=== PATIENT | male | born 1940 | race Caucasian/White ===

== ENCOUNTER 2020-07-26 10:09 | Outpatient (CLI) | payer MEDICARE | END 2020-07-26 10:10 | disposition home or self-care (01) | LOC: BICRAD 10:09 | PROVIDERS: ATTEND Internal Medicine Critical Care Medicine | DX: R06.00 Dyspnea, unspecified (principal); R91.8 Other nonspecific abnormal finding of lung field | CPT/HCPCS: 71046 ==

== ENCOUNTER 2020-08-09 11:25 | Inpatient (IN) | payer MEDICARE ==
[2020-08-09 12:40] LABS: #Eosinphils 0.1 thou/uL (0.0-0.7); #Lymphocytes 1.6 thou/uL (1.20-3.40); #Monocytes 0.5 thou/uL (0.11-0.59); #Neutrophils 5.5 thou/uL (1.40-6.50); %Basophils 0.3 % (0.0-1.0); %Eosinophils 1.3 % (0.0-10.0); %Lymphocytes 20.4 % (21.0-51.0); %Monocytes 6.6 % (0.0-10.0); %Neutrophils 71.4 % (42.0-75.0); Hemoglobin 13.5 g/dL (14.0-18.0); Mean Corpuscular HGB CONC 31.6 g/dL (32.0-36.0); Mean Corpuscular Volume 98.3 fL (78.0-98.0); Mean Platelet Volume 8.1 fL (7.4-10.4); Platelet Count 129 thou/uL (130-400); RBC Distribution Width 12.5 % (11.5-14.5); Red Blood Cell (RBC) Count 4.36 mill/uL (4.70-6.10); White Blood Cell (WBC) Count 7.8 thou/uL (4.8-10.8)
[2020-08-09 13:01] LABS: ALT (SGPT) 80 U/L (8-55); AST (SGOT) 30 U/L (5-34); Albumin 3.7 g/dL (3.4-4.8); Alkaline Phosphatase 124 U/L (40-110); Anion Gap 10 mmol/L (10-20); BUN (Urea Nitrogen) 22 mg/dL (8.4-25.7); Bilirubin, Total 0.5 mg/dL (0.2-1.2); Calc. Creatinine Clearance 0 mL/min (70-130); Calcium 8.7 mg/dL (7.8-10.44); Carbon Dioxide 32 mmol/L (23-31); Chloride 107 mmol/L (98-107); Globulin 2.3 g/dL (2.4-3.5); Glucose 133 mg/dL (83-110); Potassium 3.9 mmol/L (3.5-5.1); Sodium 145 mmol/L (136-145)
[2020-08-09] MEDS ORDERED: methylPREDNISolone Sod Succ/PF 125 MG/2 ML VIAL ONE (13:59)
[2020-08-09] MEDS ORDERED: Ondansetron ODT 4 MG TAB PO PRN (16:55)
[2020-08-09] MEDS ORDERED: Acetaminophen 325 MG TAB PO PRN (16:55)
[2020-08-09] MEDS ORDERED: cefTRIAXone\\ROCEPHIN 1 GM in Sodium Chloride 0.9% 100 ML IVPB SCH (17:00)
[2020-08-09 17:33] LABS: Bilirubin Negative (Negative); Blood, Urine Negative (Negative); Clarity Turbid (Clear); Glucose, Urine (Dipstick) Normal (Negative); Ketone, Urine Negative (Negative); Leukocyte Negative Leu/uL (Negative); Nitrite Negative (Negative); Protein, Urine (Dipstick) 20 mg/dL (Neg-Trace); Specific Gravity, Urine 1.031 (1.002-1.036); Urobilinogen Normal mg/dL (Less than 2); pH, Urine 5.5 (5.0-9.0)
[2020-08-09] MEDS ORDERED: ALPRAZolam 0.25 MG TAB PO PRN (17:35)
[2020-08-09] MEDS ORDERED: Sodium Chloride 0.45% 1,000 ML IV SCH (17:45)
[2020-08-09] MEDS ORDERED: traZODone HCl 50 MG TAB PO PRN (17:59)
[2020-08-09 19:02] VITALS: BMI 36.8
[2020-08-09] MEDS ORDERED: methylPREDNISolone Sod Succ 40 MG VIAL ONE (19:38)
[2020-08-09] MEDS: methylPREDNISolone Sod Succ 40 MG VIAL IVP SCH (19:48)
[2020-08-09] MEDS ORDERED: Magnesium Sulfate 3 GM in Sodium Chloride 0.9% 100 ML IVPB SCH (20:00)
[2020-08-09] MEDS ORDERED: Cefepime 2 GM VIAL ONE (20:22)
[2020-08-09] MEDS: Cefepime 2 GM in Sodium Chloride 0.9% 100 ML IVPB SCH (20:27)
[2020-08-09] MEDS ORDERED: Famotidine 20 MG TAB ONE (21:17)
[2020-08-09] MEDS: Famotidine 20 MG TAB PO SCH (21:38)
[2020-08-09] MEDS: guaiFENesin ER 600 MG TAB PO SCH (21:46)
[2020-08-09] MEDS: Atorvastatin Calcium 20 MG TAB PO SCH (21:46)
[2020-08-09] MEDS: Tamsulosin HCl 0.4 MG CAP PO SCH (21:47)
[2020-08-10] MEDS: methylPREDNISolone Sod Succ 40 MG VIAL IVP SCH ×4 (00:10→17:18)
[2020-08-10] MEDS: Cefepime 2 GM in Sodium Chloride 0.9% 100 ML IVPB SCH ×3 (03:51→20:29)
[2020-08-10 04:57] LABS: #Lymphocytes 0.7 thou/uL (1.20-3.40); #Monocytes 0.1 thou/uL (0.11-0.59); #Neutrophils 8.1 thou/uL (1.40-6.50); %Basophils 0.1 % (0.0-1.0); %Eosinophils 0.1 % (0.0-10.0); %Lymphocytes 7.9 % (21.0-51.0); %Monocytes 1.1 % (0.0-10.0); %Neutrophils 90.7 % (42.0-75.0); Hemoglobin 13.9 g/dL (14.0-18.0); Mean Corpuscular HGB CONC 31.8 g/dL (32.0-36.0); Mean Corpuscular Hemoglobin 31.6 pg (27.0-31.0); Mean Corpuscular Volume 99.6 fL (78.0-98.0); Mean Platelet Volume 8.4 fL (7.4-10.4); Platelet Count 145 thou/uL (130-400); RBC Distribution Width 12.4 % (11.5-14.5); Red Blood Cell (RBC) Count 4.38 mill/uL (4.70-6.10); White Blood Cell (WBC) Count 8.9 thou/uL (4.8-10.8)
[2020-08-10 05:12] LABS: Anion Gap 12 mmol/L (10-20); BUN (Urea Nitrogen) 21 mg/dL (8.4-25.7); Calc. Creatinine Clearance 99 mL/min (70-130); Calcium 8.5 mg/dL (7.8-10.44); Carbon Dioxide 27 mmol/L (23-31); Chloride 106 mmol/L (98-107); Glucose 206 mg/dL (83-110); Potassium 4.3 mmol/L (3.5-5.1); Sodium 141 mmol/L (136-145)
[2020-08-10] MEDS: Famotidine 20 MG TAB PO SCH ×2 (08:59→20:29)
[2020-08-10] MEDS ORDERED: FLU VACC QS2020-21(65YR UP)/PF 240 MCG/0.7 ML SYRINGE IM ONE (09:00)
[2020-08-10] MEDS: Finasteride 5 MG TAB PO SCH (09:00)
[2020-08-10] MEDS: Enoxaparin Sodium 40 MG/0.4 ML SYRINGE SC SCH (09:00)
[2020-08-10] MEDS: Potassium Chloride 20 MEQ TAB PO SCH (09:00)
[2020-08-10] MEDS: Furosemide 20 MG TAB PO SCH (09:01)
[2020-08-10] MEDS: Escitalopram Oxalate 20 mg Tablet PO SCH (09:01)
[2020-08-10] MEDS: Amlodipine 10 MG TAB PO SCH (09:01)
[2020-08-10] MEDS: guaiFENesin ER 600 MG TAB PO SCH ×2 (09:01→20:29)
[2020-08-10 13:09] LABS: SARS-CoV-2 PCR by NAA Not Detected (NotDetected)
[2020-08-10] MEDS: Tamsulosin HCl 0.4 MG CAP PO SCH (20:29)
[2020-08-10] MEDS: Atorvastatin Calcium 20 MG TAB PO SCH (20:29)
[2020-08-11] MEDS: methylPREDNISolone Sod Succ 40 MG VIAL IVP SCH ×3 (00:28→11:55)
[2020-08-11] MEDS: Cefepime 2 GM in Sodium Chloride 0.9% 100 ML IVPB SCH ×2 (05:07→11:59)
[2020-08-11] MEDS: Enoxaparin Sodium 40 MG/0.4 ML SYRINGE SC SCH (08:45)
[2020-08-11] MEDS: guaiFENesin ER 600 MG TAB PO SCH (08:46)
[2020-08-11] MEDS: Amlodipine 10 MG TAB PO SCH (08:46)
[2020-08-11] MEDS: Finasteride 5 MG TAB PO SCH (08:46)
[2020-08-11] MEDS: Potassium Chloride 20 MEQ TAB PO SCH (08:46)
[2020-08-11] MEDS: Escitalopram Oxalate 20 mg Tablet PO SCH (08:46)
[2020-08-11] MEDS: Famotidine 20 MG TAB PO SCH (08:46)
[2020-08-11] MEDS: Furosemide 20 MG TAB PO SCH (08:47)
[2020-08-11] MEDS ORDERED: Polyethylene Glycol 3350 17 GM Packet PO PRN (11:46)
[2020-08-11 11:55] VITALS: BP 119/56; TEMP 98.3
[2020-08-11] MEDS ORDERED: GUAIFENESIN SF SOLN 200 MG/10 ML UDCUP PO PRN (14:33)
[2020-08-11] MEDS ORDERED: Fluticasone Propionate Nasal Spray 16 gm Bottle NASAL SCH (14:45)
[2020-08-11] MEDS ORDERED: Sodium Chloride 0.65% Nasal 44 ML BOT EA NARE SCH (15:00)
== END 2020-08-11 14:55 | disposition left against medical advice (07) | DRG 189 ==
LOC: ERS 11:25 → ERHOLD 15:35 → 2NO 23:50
PROVIDERS: ADMIT Internal Medicine; ATTEND Internal Medicine
DX: J96.21 Acute and chronic respiratory failure with hypoxia (principal); J44.1 Chronic obstructive pulmonary disease with (acute) exacerbation; J98.11 Atelectasis; E66.9 Obesity, unspecified; J30.9 Allergic rhinitis, unspecified; I25.10 Atherosclerotic heart disease of native coronary artery without angina pectoris; Z20.822 Contact with and (suspected) exposure to COVID-19; G47.33 Obstructive sleep apnea (adult) (pediatric); D63.1 Anemia in chronic kidney disease; N18.2 Chronic kidney disease, stage 2 (mild); N40.0 Benign prostatic hyperplasia without lower urinary tract symptoms; I12.9 Hypertensive chronic kidney disease with stage 1 through stage 4 chronic kidney disease, or unspecified chronic kidney disease; F41.9 Anxiety disorder, unspecified; I25.2 Old myocardial infarction; Z87.891 Personal history of nicotine dependence; Z88.5 Allergy status to narcotic agent; Z88.8 Allergy status to other drugs, medicaments and biological substances; Z99.81 Dependence on supplemental oxygen; Z68.36 Body mass index [BMI] 36.0-36.9, adult; Z90.49 Acquired absence of other specified parts of digestive tract
CPT/HCPCS: 36415; 71045; 80048; 80053; 81003; 83605; 84484; 85025; 87040; 87635; 93005; 93306; 94640; 94660; 96374; J0692; J1650; J2920; J2930; J3475; J3490; J7620; U0003; U0005

== ENCOUNTER 2021-05-02 09:58 | Outpatient (CLI) | payer MEDICARE | END 2021-05-02 09:59 | disposition home or self-care (01) | LOC: RAD 09:58 | PROVIDERS: ATTEND Internal Medicine Critical Care Medicine | DX: R06.00 Dyspnea, unspecified (principal) | CPT/HCPCS: 71046 ==

== ENCOUNTER 2022-10-03 11:07 | Outpatient (CLI) | payer MEDICARE | END 2022-10-03 11:08 | disposition home or self-care (01) | LOC: RAD 11:07 | PROVIDERS: ATTEND Internal Medicine Critical Care Medicine | DX: R06.00 Dyspnea, unspecified (principal); M48.54XD Collapsed vertebra, not elsewhere classified, thoracic region, subsequent encounter for fracture with routine healing | CPT/HCPCS: 71046 ==

== ENCOUNTER 2023-04-30 10:42 | Outpatient (CLI) | payer MEDICARE | END 2023-04-30 10:43 | disposition home or self-care (01) | LOC: RAD 10:42 | PROVIDERS: ATTEND Internal Medicine Critical Care Medicine | DX: R06.00 Dyspnea, unspecified (principal); J18.9 Pneumonia, unspecified organism; I51.7 Cardiomegaly | CPT/HCPCS: 71046 ==

== ENCOUNTER 2024-04-28 11:43 | Outpatient (CLI) | payer MEDICARE | END 2024-04-28 11:44 | disposition home or self-care (01) | LOC: RAD 11:43 | PROVIDERS: ATTEND Internal Medicine Critical Care Medicine | DX: R06.00 Dyspnea, unspecified (principal) | CPT/HCPCS: 71046 ==

== ENCOUNTER 2024-12-09 09:26 | Inpatient (IN) | payer MEDICARE ==
[2024-12-09] MEDS ORDERED: Ondansetron PF 4 MG/2 ML Vial IVP PRN (11:48)
[2024-12-09] MEDS ORDERED: Senokot S 8.6-50 MG TAB PO PRN (11:48)
[2024-12-09] MEDS ORDERED: Calcium Carbonate 500 MG ChewTAB PO PRN (11:48)
[2024-12-09 12:33] LABS: #Basophils Less than 0.03 10x3/uL (0.0-0.2); #Eosinophils 0.07 10x3/uL (0.0-0.7); #Monocytes 0.39 10x3/uL (0.11-0.59); #Neutrophils 3.98 10x3/uL (1.40-6.50); %Basophils 0.4 % (0.0-1.0); %Eosinophils 1.2 % (0.0-10.0); %Lymphocytes 21.4 % (21.0-51.0); %Monocytes 6.9 % (0.0-10.0); %Neutrophils 69.9 % (42.0-75.0); Hematocrit 37.7 % (42.0-52.0); Hemoglobin 11.8 g/dL (14.0-18.0); Mean Corpuscular Hemoglobin 29.2 pg (27.0-31.0); Mean Corpuscular Volume 93.3 fL (78.0-98.0); Platelet Count 131 10x3/uL (130-400); Red Blood Cell (RBC) Count 4.04 mill/uL (4.70-6.10); White Blood Cell (WBC) Count 5.69 10x3/uL (4.8-10.8)
[2024-12-09 12:36] LABS: Troponin I 0.020 ng/mL (< 0.028)
[2024-12-09 12:39] LABS: Anion Gap 14 mmol/L (10-20); BUN (Urea Nitrogen) 12 mg/dL (8.4-25.7); Calc. Creatinine Clearance 0 mL/min (70-130); Calcium 8.7 mg/dL (7.8-10.44); Carbon Dioxide 34 mmol/L (23-31); Chloride 96 mmol/L (98-107); Glucose 86 mg/dL (83-110); Magnesium 1.7 mg/dL (1.6-2.6); Potassium 3.4 mmol/L (3.5-5.1); Sodium 141 mmol/L (136-145)
[2024-12-09] MEDS ORDERED: Guaifenesin DM 100-10/5 ML UDCUP PO PRN (13:05)
[2024-12-09 13:30] VITALS: BMI 25.6
[2024-12-09 15:10] LABS: Troponin I 0.028 ng/mL (< 0.028)
[2024-12-09] MEDS: predniSONE 20 MG TAB PO SCH (16:38)
[2024-12-09] MEDS: Furosemide 40 MG (4 mL) VIAL SLOW IVP SCH (16:39)
[2024-12-09 17:29] LABS: Influenza A by NAA Not Detected (NotDetected); Influenza B by NAA Not Detected (NotDetected); SARS-CoV-2 NAA Rapid Test Not Detected (NotDetected)
[2024-12-09] MEDS: cefTRIAXone\\ROCEPHIN 1 GM in Sodium Chloride 0.9% 100 ML IVPB SCH (20:33)
[2024-12-09] MEDS: Bupropion 150 MG SR.TAB PO SCH (20:33)
[2024-12-09] MEDS: Melatonin 3 MG TAB PO PRN (20:34)
[2024-12-09] MEDS: Divalproex Sodium 250 MG ER.TAB PO SCH (20:34)
[2024-12-10 04:34] LABS: #Basophils Less than 0.03 10x3/uL (0.0-0.2); #Eosinophils Less than 0.03 10x3/uL (0.0-0.7); #Monocytes 0.11 10x3/uL (0.11-0.59); #Neutrophils 2.31 10x3/uL (1.40-6.50); %Basophils 0.3 % (0.0-1.0); %Eosinophils 0.3 % (0.0-10.0); %Lymphocytes 18.1 % (21.0-51.0); %Monocytes 3.7 % (0.0-10.0); %Neutrophils 77.3 % (42.0-75.0); Hematocrit 39.2 % (42.0-52.0); Hemoglobin 12.3 g/dL (14.0-18.0); Mean Corpuscular Hemoglobin 29.3 pg (27.0-31.0); Mean Corpuscular Volume 93.3 fL (78.0-98.0); Platelet Count 156 10x3/uL (130-400); Red Blood Cell (RBC) Count 4.20 mill/uL (4.70-6.10); White Blood Cell (WBC) Count 2.99 10x3/uL (4.8-10.8)
[2024-12-10 04:58] LABS: Anion Gap 15 mmol/L (10-20); BUN (Urea Nitrogen) 14 mg/dL (8.4-25.7); Calc. Creatinine Clearance 63 mL/min (70-130); Calcium 8.8 mg/dL (7.8-10.44); Carbon Dioxide 35 mmol/L (23-31); Chloride 97 mmol/L (98-107); Glucose 119 mg/dL (83-110); Potassium 4.6 mmol/L (3.5-5.1); Sodium 142 mmol/L (136-145)
[2024-12-10] MEDS: predniSONE 20 MG TAB PO SCH (11:04)
[2024-12-10] MEDS: Calcium Carbonate 600 MG + Vit D TAB PO SCH (11:04)
[2024-12-10] MEDS: Furosemide 40 MG (4 mL) VIAL SLOW IVP SCH (11:05)
[2024-12-10] MEDS: Ferrous Sulfate 325 MG TAB PO SCH (11:05)
[2024-12-10] MEDS: Enoxaparin 40 MG (0.4 mL) SYRINGE SC SCH (11:05)
[2024-12-10] MEDS: Finasteride 5 MG TAB PO SCH (11:05)
[2024-12-10] MEDS: Magnesium Oxide 400 MG TAB PO SCH (11:06)
[2024-12-10] MEDS: Metoprolol Succinate XL 25 MG ER.TAB PO SCH (11:06)
[2024-12-10] MEDS: Pantoprazole 40 MG DR.TAB PO SCH (11:06)
[2024-12-11 05:44] LABS: Anion Gap 12 mmol/L (10-20); BUN (Urea Nitrogen) 16 mg/dL (8.4-25.7); Calc. Creatinine Clearance 59 mL/min (70-130); Calcium 8.8 mg/dL (7.8-10.44); Carbon Dioxide 35 mmol/L (23-31); Chloride 98 mmol/L (98-107); Glucose 134 mg/dL (83-110); Potassium 3.6 mmol/L (3.5-5.1); Sodium 141 mmol/L (136-145)
[2024-12-11] MEDS: Acetaminophen 325 MG TAB PO PRN (14:59)
[2024-12-12 04:21] LABS: #Basophils Less than 0.03 10x3/uL (0.0-0.2); #Eosinophils Less than 0.03 10x3/uL (0.0-0.7); #Monocytes 0.34 10x3/uL (0.11-0.59); #Neutrophils 3.49 10x3/uL (1.40-6.50); %Basophils 0.2 % (0.0-1.0); %Eosinophils 0.2 % (0.0-10.0); %Lymphocytes 20.2 % (21.0-51.0); %Monocytes 7.0 % (0.0-10.0); %Neutrophils 72.0 % (42.0-75.0); Hematocrit 38.1 % (42.0-52.0); Hemoglobin 11.8 g/dL (14.0-18.0); Mean Corpuscular Hemoglobin 29.0 pg (27.0-31.0); Mean Corpuscular Volume 93.6 fL (78.0-98.0); Platelet Count 154 10x3/uL (130-400); Red Blood Cell (RBC) Count 4.07 mill/uL (4.70-6.10); White Blood Cell (WBC) Count 4.85 10x3/uL (4.8-10.8)
[2024-12-12 04:37] LABS: Anion Gap 12 mmol/L (10-20); BUN (Urea Nitrogen) 19 mg/dL (8.4-25.7); Calc. Creatinine Clearance 51 mL/min (70-130); Calcium 8.5 mg/dL (7.8-10.44); Carbon Dioxide 36 mmol/L (23-31); Chloride 100 mmol/L (98-107); Glucose 127 mg/dL (83-110); Potassium 3.7 mmol/L (3.5-5.1); Sodium 144 mmol/L (136-145)
[2024-12-12] MEDS: Furosemide 40 MG (4 mL) VIAL SLOW IVP SCH (16:14)
[2024-12-13 05:37] LABS: Anion Gap 15 mmol/L (10-20); BUN (Urea Nitrogen) 21 mg/dL (8.4-25.7); Calc. Creatinine Clearance 61 mL/min (70-130); Calcium 8.9 mg/dL (7.8-10.44); Carbon Dioxide 34 mmol/L (23-31); Chloride 97 mmol/L (98-107); Glucose 90 mg/dL (83-110); Potassium 4.1 mmol/L (3.5-5.1); Sodium 142 mmol/L (136-145)
[2024-12-13] MEDS: Furosemide 40 MG (4 mL) VIAL SLOW IVP SCH (05:57)
[2024-12-13] MEDS: predniSONE 20 MG TAB PO SCH (09:19)
[2024-12-13 14:51] VITALS: BP 121/61; TEMP 98
== END 2024-12-13 18:17 | disposition home or self-care (01) | DRG 291 ==
LOC: 2NO 11:13
PROVIDERS: ADMIT Hospitalist; ATTEND Emergency Medicine
PROC: 3E03329 Introduction of Other Anti-infective into Peripheral Vein, Percutaneous Approach (ICD-10-PCS; principal; 2024-12-09)
PROC: 0T9B70Z Drainage of Bladder with Drainage Device, Via Natural or Artificial Opening (ICD-10-PCS; 2024-12-09)
PROC: 5A09357 Assistance with Respiratory Ventilation, Less than 24 Consecutive Hours, Continuous Positive Airway Pressure (ICD-10-PCS; 2024-12-12)
DX: I13.0 Hypertensive heart and chronic kidney disease with heart failure and stage 1 through stage 4 chronic kidney disease, or unspecified chronic kidney disease (principal); I50.23 Acute on chronic systolic (congestive) heart failure; J96.21 Acute and chronic respiratory failure with hypoxia; I48.19 Other persistent atrial fibrillation; J44.1 Chronic obstructive pulmonary disease with (acute) exacerbation; E78.5 Hyperlipidemia, unspecified; I25.10 Atherosclerotic heart disease of native coronary artery without angina pectoris; G47.33 Obstructive sleep apnea (adult) (pediatric); N18.2 Chronic kidney disease, stage 2 (mild); E11.22 Type 2 diabetes mellitus with diabetic chronic kidney disease; N40.0 Benign prostatic hyperplasia without lower urinary tract symptoms; E66.9 Obesity, unspecified; I34.0 Nonrheumatic mitral (valve) insufficiency; J30.9 Allergic rhinitis, unspecified; Z99.81 Dependence on supplemental oxygen; Z88.5 Allergy status to narcotic agent; Z79.899 Other long term (current) drug therapy; Z79.51 Long term (current) use of inhaled steroids; Z98.890 Other specified postprocedural states; Z90.49 Acquired absence of other specified parts of digestive tract; Z87.891 Personal history of nicotine dependence; I25.2 Old myocardial infarction
CPT/HCPCS: 36415; 80048; 83036; 83735; 83880; 85025; 85379; 87636; 93005; 93010; 93306; 93798; 94640; 94660; J0696; J1650; J1940; J7512; J7620